=== PATIENT | male | born 1950 | race Caucasian/White ===

== ENCOUNTER 2023-07-19 00:24 | Emergency (ER) | payer SELFPAY ==
[2023-07-19 00:31] VITALS: BP 184/90; PULSE 95; RESP 18; TEMP 36.8; O2SAT 99; BMI 28.1
[2023-07-19 00:41] VITALS: O2SAT 98
--- NOTE | 2023-07-19 00:41 | CRLHL7_ITS ---
For Patients: As a result of the Cures Act, medical imaging exams and procedure reports are released immediately into your electronic medical record. You may view this report before your referring provider. If you have questions, please contact your health care provider. INDICATION: Altered mental status. TECHNIQUE: CT head without contrast. COMPARISON: None. FINDINGS: CSF spaces: Within normal limits for age. Brain parenchyma and extra-axial spaces: The pathak-white differentiation is normal. No sign of mass, hemorrhage, or midline shift. No extra-axial fluid collection. Skull base and calvarium: The visualized paranasal sinuses and mastoid air cells demonstrate no acute or significant findings. The visualized orbits are grossly unremarkable. No skull fractures. IMPRESSION: No acute intracranial abnormality on this noncontrast CT scan. Please note that all CT scans at this facility use dose modulation, iterative reconstruction, and/or weight-based dosing when appropriate to reduce radiation dose to as low as reasonably achievable. Dictated by Jadon Ashford MD @ 07/19/2023 1:26:01 AM (Electronically Signed)
--- NOTE | 2023-07-19 01:12 | ED.GENADULT ---
HPI - General Adult General Chief complaint: Altered Mental Status <Kailash Loomis MD - Last Filed: 07/19/23 11:03> Stated complaint: altered mental status <Kailash Loomis MD - Last Filed: 07/19/23 11:03> Time Seen by Provider: 07/19/23 00:30 <Kailash Loomis MD - Last Filed: 07/19/23 11:03> History of Present Illness HPI narrative: CC: Altered Mental Status pt. with symptoms for last 2 days per son. pt. confused upon arrival by ems. blood sugar 160. pt. unable to answer most questions 72-year-old man presenting to the emergency department via EMS with just being goofy over the last week but particularly so over the last 2 days. Accompanied by son. Seems to have trouble with recall. Often not making sense. Son had hoped to wait it out until morning but today got more difficult. Seems to get a little emotional when saying that he was here to protect his son in [place] from bad actors of some sort. Indicates that [place] police stole his things. I discussed this with his son, apparently had suspected to have staged a break in at son's home in [place] when son was out of town for work. 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 Does acknowledge having a history of particularly bad sleep lately. Does will proceed to ramble tangentially and pleasantly about surgeries he has had on his left arm. He acknowledges that is not taking his medications regularly (incidentally no evidence of taking medications including lithium in blood work done in emergency department visit 3 days ago) He feels that was told to go to micro dosing on his lithium. Does otherwise only indicate that he takes hydroxyzine and propranolol. Son is concerned that behavior is little atypical for bipolar decompensations he has exhibited in the past. Wondering about potential infection or dementia. Son notes trying to give hydroxyzine and propranolol but it seemed to be stimulating. Further conversation/information gathering reveals recent visit on 07/16/2023 to the emergency department at [facility] in [facility] where he was evaluated by psychiatry at that time. Son, a safety professional was out of town in [place] and his father had been visiting in [place] for couple of weeks. Son noted that had not been responding appropriately to text messages. It sounds as though father had staged a break-in to his son's home. Police conducted a welfare check on son's request. Mr. Villatoro was found at a bar. He has been having suspicions and suspected delusions about the son being unsafe. Review of records indicate history of bipolar disorder depression anxiety PTSD and at that time of emergency department evaluation acknowledging increased anxiety and depression but without suicidal or homicidal intent or plan. Increasingly odd behavior noted examples of strange events with ?nefarious meaning? which may be as simple as a traffic pattern change or water on a staircase. He had per records confronted strangers in the restaurant/bar who were he thought making a senior architect/design manager is a feel uncomfortable and then apparently ate a cigarette. During psychiatric assessment in the emergency department he further acknowledged that might be seeing some things that are not there or at least very strange. Demonstrated continued paranoia during time in the emergency department. Ultimately was discharged to the care of son to return to [place] with recommendations for neurocognitive testing, follow-up with geriatrics and psychiatry. Preliminary diagnosis was adjustment disorder unspecified type. Medications assumed on discharge the though without clear dosing were clonazepam hydroxyzine lithium propranolol and simvastatin. Apparently has taken lisinopril but Mr. Villatoro does say he is not taking it anymore. There is a relationship with a primary care provider Dr. Kev Ha phone number [phone] he thinks with [facility] in [place] and also acknowledges a relationship with psychiatrist MONSE Kamara and a therapist Rosalie Clemons PhD <Kailash Loomis MD - Last Filed: 07/19/23 11:03> Related Data Home medications: Home Medications Medication Instructions Recorded Confirmed clonazepam 0.5 mg tablet 0.5 mg PO DAILY PRN 07/19/23 07/19/23 desipramine 10 mg tablet 10 - 20 mg PO DAILY 07/19/23 07/19/23 hydroxyzine HCl 25 mg tablet 25 - 50 mg PO DAILY PRN 07/19/23 07/19/23 propranolol 20 mg tablet 20 mg PO BID 07/19/23 07/19/23 simvastatin 40 mg tablet 40 mg PO DAILY 07/19/23 07/19/23 <Kailash Loomis MD - Last Filed: 07/19/23 11:03> Allergies/adverse reactions: Allergies Allergy/AdvReac Type Severity Reaction Status Date / Time No Known Drug Allergies Allergy Verified 07/19/23 02:28 <Kailash Loomis MD - Last Filed: 07/19/23 11:03> Review of Systems Status of ROS: Reports: unobtainable due to medical condition and unobtainable due to mental status <Kailash Loomis MD - Last Filed: 07/19/23 11:03> [facility] Medical History: Medical History Hypertension ?I10 - Essential (primary) hypertension (ICD-10) GERD (gastroesophageal reflux disease) ?K21.9 - Gastro-esophageal reflux disease without esophagitis (ICD-10) Prostatic hypertrophy ?N40.0 - Benign prostatic hyperplasia without lower urinary tract symptoms (ICD-10) Hyperlipoproteinemia ?E78.5 - Hyperlipidemia, unspecified (ICD-10) Bipolar disorder ?F31.9 - Bipolar disorder, unspecified (ICD-10) <Kailash Loomis MD - Last Filed: 07/19/23 11:03> Surgical History: Surgical History (Updated 07/19/23 @ 02:39 by Kojo Valiente RN) No significant past surgical history <Kailash Loomis MD - Last Filed: 07/19/23 11:03> Social History: Social History Smoking Status: Never smoker Second hand tobacco smoke exposure: No How often do you have a drink containing alcohol: never How often do you have six or more drinks on one occasion: Never AUDIT-C Alcohol total score: 0 Non-prescribed substance use: denies use <Kailash Loomis MD - Last Filed: 07/19/23 11:03> Exam Narrative: Exam Narrative: Initially seems to be smirking not directly answering questions or frankly ignoring staff questioning. but when I go to assess begins to speak more extensively. Speech isn't pressured or slurred. He does though oddly go quiet intermittently. Answers to questions can be rather rambling and tangential. He may not make sense and answers questions often by just repeating the last word stated. And then may suddenly snap out of it. Says he feels fine. Mood is congruent. Cranial nerves 2-12 to be intact. He is breathing easily. No evidence self-harm on his person. Heart in elevated rate but regular rhythm. Abdomen is soft and nontender they seems little uncomfortable with exam joking about dad bod. He is moving all extremities without difficulty, fluidly and with good strength. Well-perfused peripherally and without edema. <Kailash Loomis MD - Last Filed: 07/19/23 11:03> Const: Vital Signs, click to edit/add: Vital Signs - 24 hr 07/19/23 20:32 07/20/23 02:43 07/20/23 08:00 Temperature 97.6 F Pulse Rate [Right Pulse Oximeter] 87 83 74 Respiratory Rate 18 18 16 Blood Pressure [Ri ght Upper Arm] 145/83 H 141/87 H 141/83 H Pulse Oximetry 97 98 98 Oxygen Delivery Me thod Room Air Room Air Room Air <Kailash Loomis MD - Last Filed: 07/19/23 11:03> Vital Signs, click to edit/add: Vital Signs - 24 hr 07/19/23 20:32 07/20/23 02:43 07/20/23 08:00 Temperature 97.6 F Pulse Rate [Right Pulse Oximeter] 87 83 74 Respiratory Rate 18 18 16 Blood Pressure [Ri ght Upper Arm] 145/83 H 141/87 H 141/83 H Pulse Oximetry 97 98 98 Oxygen Delivery Me thod Room Air Room Air Room Air <Chani Louis MD - Last Filed: 07/20/23 14:58> Vital Signs, click to edit/add: Vital Signs - 24 hr 07/19/23 20:32 07/20/23 02:43 07/20/23 08:00 Temperature 97.6 F Pulse Rate [Right Pulse Oximeter] 87 83 74 Respiratory Rate 18 18 16 Blood Pressure [Ri ght Upper Arm] 145/83 H 141/87 H 141/83 H Pulse Oximetry 97 98 98 Oxygen Delivery Me thod Room Air Room Air Room Air <Ezequiel Lawton MD - Last Filed: 09/03/23 08:24> Vital Signs, click to edit/add: Vital Signs - 24 hr 07/19/23 20:32 07/20/23 02:43 07/20/23 08:00 Temperature 97.6 F Pulse Rate [Right Pulse Oximeter] 87 83 74 Respiratory Rate 18 18 16 Blood Pressure [Ri t Upper Arm] 145/83 H 141/87 H 141/83 H Pulse Oximetry 97 98 98 Oxygen Delivery Me thod Room Air Room Air Room Air <Mary Ann Olmos MD - Last Filed: 07/20/23 08:11> Documenting provider has reviewed patient's vital signs: yes <Kailash Loomis MD - Last Filed: 07/19/23 11:03> Course Reevaluation(s) Time of Reevaluation #1: 09:53 <Chani Louis MD - Last Filed: 07/20/23 14:58> Reevaluation #1: Patient is having escalating behavior, continues to be in the hallway. States he is looking for nurse, does seem to get frustrated and swears. He is not combative with us. Will initiate some oral Zyprexa at this time. His son is still here and he obviously is more trusting of his son, his son is able to direct him back to the room. We are still looking for placement. <Chani Louis MD - Last Filed: 07/20/23 14:58> Time of Reevaluation #2: 12:18 <Chani Louis MD - Last Filed: 07/20/23 14:58> Reevaluation #2: Patient reportedly becoming a bit more agitated, will have him receive 1 mg oral Ativan. Still awaiting placement. <Chani Louis MD - Last Filed: 07/20/23 14:58> Time of Reevaluation #3: 12:55 <Chani Louis MD - Last Filed: 07/20/23 14:58> Reevaluation #3: Patient walked out of the ER into the back all way by Radiology. He was not redirectable initially, Dr. Jhaveri was called. We had ordered 5 mg IV Zyprexa which she will not allow is to give. After some talking and coaxing, we were able to get him back into the ER to walk in the ER. He eventually stood outside of his room. He wanted the police to come up, we did call them, they are not here, he wants to know how long it will be. I have informed him that I do not know. He states the please can explain this and explained this to his son. He does state that he was in the but cannot tell us what he did. His son states he was never in the . He agrees to take oral Ativan, I have subsequently ordered 2 mg oral Ativan and we will see if he actually will follow through with this. Right now he is standing outside of his room, where trying to get him back inside his room. Did speak with Jesus Breen and patient would need to be voluntary there; they would hope that he would be able to participate in group therapies. This does not sound like the environment for Mark. He has no insight into his current mental health/mental status issues. It is very possible that there could be some underlying dementia at play that is starting to become problematic. He is up standing and moving a lot, looks to be calm and does not have any pressured speech but certainly could be in a mild manic state. Is reported that sleep has not been happening, do not know to what extent this is problematic. <Chani Louis MD - Last Filed: 07/20/23 14:58> Additional Reevaluation(s): 3:[address] Anthony was called, patient escalated and walks out of the ER, did walk in the hospital with him, he eventually did find an exit in when outside, was walking around the parking lots outside. Police were called, we walked outside with him and just talk to him as we are waiting police to come. They were able to help direct him back inside. He is talking about how his son is stealing money from him despite being in a well the person himself. We did ultimately sign the hold paperwork as patient was asking about this, formally did fill out the paperwork and presented it to him. Tried to talk to him about having an MRI of his bring in workup of other possible contributing etiologies like perhaps dementia. He did not agree to this, this is not something that he will hold still for. We tried to explain to him that was different than the head CT. His son notes that when he was in the hospital in [place] a few days ago, they did do blood work and they found no traces of the medicines that he was supposed to be on. States the doctor also told them that somebody with bipolar disorder probably should not be on that medicine. In his med rec it looks like desipramine is listed and is an antidepressant. I see no mood stabilizers. Patient was given a be 52 IM to help in deescalating his behaviors and calming him. 5:20 p.m. reviewed prior notes from this visit, patient has history of bipolar disorder apparently not taking medications into compensating with paranoia, delusions, and possible hallucinations. Uncooperative with cares and has required redirection and multiple rounds of medications. Patient is on a hold. Wednesday07/20/2023 9:00 p.m.: Patient is seen again today. He is much more stable, knows it is 2022, knows he is in [facility], knows it is June. He still seems a bit suspicious, does not want to answer who his doctor is. He does tell me that I can get records without him signing. Did ask when he went off lithium, he states he has been on and off lithium over the years. He does get a little agitated about my questioning of his medication and who he sees for medical care, seems like he does not want me to know. I do have pictures of his medication bottles, can see that he is had some prescribed from Coleen Kamara and his cholesterol medicine is from Ray Ha whom is his primary provider in [place]. I did subsequently speak with Dr. Ha at 11:23 a.m., he sees this patient about twice a year and has been function well. We last saw him in April, he admitted that he was taking his lithium on and off but was on the desipramine. Coleen Harper ACCOUNTING TEACHER reportedly is the 1 who prescribes his psychiatric medicines. He has followed his lithium levels they have all been in low normal range. He is on lithium extended release [address] Ha believes that he should be on the lithium and desipramine. I subsequently spoke with our pharmacist, we do not have extended release lithium. We are going to initiate 300 mg now, she will check to see if we have desipramine. Will see if we can talk to Coleen as well. It is unclear to me that this is likely an acute psychosis from decompensated bipolar disorder. Patient is a bit clearer and more directable today than he was yesterday. I am doubtful that there is any underlying delirium, any significant dementia that is playing into this upon re-evaluation and seeing the events that have progressed over the last couple weeks. I have had the ability to see him yesterday into today now, is mentally better after some of the stabilizing affects of the antipsychotics. Still think he would benefit from inpatient Psychiatry. Wednesday07/20/2023 2:57 p.m.: Patient has been accepted to [facility]. This is reportedly a geriatric psychiatric care facility. <Chani Louis MD - Last Filed: 07/20/23 14:58> 3:[address] Anthony was called, patient escalated and walks out of the ER, did walk in the hospital with him, he eventually did find an exit in when outside, was walking around the parking lots outside. Police were called, we walked outside with him and just talk to him as we are waiting police to come. They were able to help direct him back inside. He is talking about how his son is stealing money from him despite being in a well the person himself. We did ultimately sign the hold paperwork as patient was asking about this, formally did fill out the paperwork and presented it to him. Tried to talk to him about having an MRI of his bring in workup of other possible contributing etiologies like perhaps dementia. He did not agree to this, this is not something that he will hold still for. We tried to explain to him that was different than the head CT. His son notes that when he was in the hospital in [place] a few days ago, they did do blood work and they found no traces of the medicines that he was supposed to be on. States the doctor also told them that somebody with bipolar disorder probably should not be on that medicine. In his med rec it looks like desipramine is listed and is an antidepressant. I see no mood stabilizers. Patient was given a be 52 IM to help in deescalating his behaviors and calming him. 5:20 p.m. reviewed prior notes from this visit, patient has history of bipolar disorder apparently not taking medications into compensating with paranoia, delusions, and possible hallucinations. Uncooperative with cares and has required redirection and multiple rounds of medications. Patient is on a hold. <Ezequiel Lawton MD - Last Filed: 09/03/23 08:24> Vital Signs Vital signs: Initial Vital Signs Temperature 98.2 F 07/19/23 00:31 Temperature Source Temporal Artery Scan 07/19/23 00:31 Pulse Rate 95 07/19/23 00:31 Respiratory Rate 18 07/19/23 00:31 Blood Pressure 184/90 H 07/19/23 00:31 Blood Pressure Mean 121 H 07/19/23 00:31 Blood Pressure Position Sitting 07/19/23 00:31 Pulse Oximetry 99 07/19/23 00:31 Oxygen Delivery Method Room Air 07/19/23 00:31 Vital Signs Temperature 98.2 F 07/19/23 00:31 Pulse Rate 95 07/19/23 00:31 Respiratory Rate 18 07/19/23 00:31 Blood Pressure 184/90 H 07/19/23 00:31 Pulse Oximetry 99 07/19/23 00:31 Oxygen Delivery Method Room Air 07/19/23 00:31 Temperature 97.8 F 07/20/23 17:50 Pulse Rate 81 07/20/23 17:50 Respiratory Rate 14 07/20/23 17:50 Blood Pressure 173/90 H 07/20/23 17:50 Pulse Oximetry 98 07/20/23 17:50 Oxygen Delivery Method Room Air 07/20/23 17:50 <Kailash Loomis MD - Last Filed: 07/19/23 11:03> Initial Vital Signs Temperature 98.2 F 07/19/23 00:31 Temperature Source Temporal Artery Scan 07/19/23 00:31 Pulse Rate 95 07/19/23 00:31 Respiratory Rate 18 07/19/23 00:31 Blood Pressure 184/90 H 07/19/23 00:31 Blood Pressure Mean 121 H 07/19/23 00:31 Blood Pressure Position Sitting 07/19/23 00:31 Pulse Oximetry 99 07/19/23 00:31 Oxygen Delivery Method Room Air 07/19/23 00:31 Vital Signs Temperature 98.2 F 07/19/23 00:31 Pulse Rate 95 07/19/23 00:31 Respiratory Rate 18 07/19/23 00:31 Blood Pressure 184/90 H 07/19/23 00:31 Pulse Oximetry 99 07/19/23 00:31 Oxygen Delivery Method Room Air 07/19/23 00:31 Temperature 97.8 F 07/20/23 17:50 Pulse Rate 81 07/20/23 17:50 Respiratory Rate 14 07/20/23 17:50 Blood Pressure 173/90 H 07/20/23 17:50 Pulse Oximetry 98 07/20/23 17:50 Oxygen Delivery Method Room Air 07/20/23 17:50 <Chani Louis MD - Last Filed: 07/20/23 14:58> Initial Vital Signs Temperature 98.2 F 07/19/23 00:31 Temperature Source Temporal Artery Scan 07/19/23 00:31 Pulse Rate 95 07/19/23 00:31 Respiratory Rate 18 07/19/23 00:31 Blood Pressure 184/90 H 07/19/23 00:31 Blood Pressure Mean 121 H 07/19/23 00:31 Blood Pressure Position Sitting 07/19/23 00:31 Pulse Oximetry 99 07/19/23 00:31 Oxygen Delivery Method Room Air 07/19/23 00:31 Vital Signs Temperature 98.2 F 07/19/23 00:31 Pulse Rate 95 07/19/23 00:31 Respiratory Rate 18 07/19/23 00:31 Blood Pressure 184/90 H 07/19/23 00:31 Pulse Oximetry 99 07/19/23 00:31 Oxygen Delivery Method Room Air 07/19/23 00:31 Temperature 97.8 F 07/20/23 17:50 Pulse Rate 81 07/20/23 17:50 Respiratory Rate 14 07/20/23 17:50 Blood Pressure 173/90 H 07/20/23 17:50 Pulse Oximetry 98 07/20/23 17:50 Oxygen Delivery Method Room Air 07/20/23 17:50 <Ezequiel Lawton MD - Last Filed: 09/03/23 08:24> Initial Vital Signs Temperature 98.2 F 07/19/23 00:31 Temperature Source Temporal Artery Scan 07/19/23 00:31 Pulse Rate 95 07/19/23 00:31 Respiratory Rate 18 07/19/23 00:31 Blood Pressure 184/90 H 07/19/23 00:31 Blood Pressure Mean 121 H 07/19/23 00:31 Blood Pressure Position Sitting 07/19/23 00:31 Pulse Oximetry 99 07/19/23 00:31 Oxygen Delivery Method Room Air 07/19/23 00:31 Vital Signs Temperature 98.2 F 07/19/23 00:31 Pulse Rate 95 07/19/23 00:31 Respiratory Rate 18 07/19/23 00:31 Blood Pressure 184/90 H 07/19/23 00:31 Pulse Oximetry 99 07/19/23 00:31 Oxygen Delivery Method Room Air 07/19/23 00:31 Temperature 97.8 F 07/20/23 17:50 Pulse Rate 81 07/20/23 17:50 Respiratory Rate 14 07/20/23 17:50 Blood Pressure 173/90 H 07/20/23 17:50 Pulse Oximetry 98 07/20/23 17:50 Oxygen Delivery Method Room Air 07/20/23 17:50 <Mary Ann Olmos MD - Last Filed: 07/20/23 08:11> Medical Decision Making MDM Narrative Medical decision making narrative: Initially there was some concern of potential stroke on arrival. This clearly though has been going on for longer period of time. Differential includes hyperglycemia, thyroid dysfunction, indolent infectious process, med reaction, electrolyte imbalance. Josie or other mental health instability. I favor the latter; decompensating mental health complicated by geriatrics. Initial conversation as follows; return to gather more information as noted in HPI -- Does admit to taking regular medication for a time. Had been taking lithium but I believe did like the way it made him feel and had been tapered off the way he describes that. Has not been taking medications regularly anyway. He endorses propranolol and hydroxyzine. Limited information but then also from son that he did get his dad to take medication I believe yesterday. Unsure what regular medications are supposed to be or where gets primary care. Currently son is the only family around. Is not exactly clear when I ask about hallucinations. Deflects and asks for water. Without initial information of extensive mental health, and as described by son with atypical features for bipolar exacerbation in the past, did request head CT and extensive lab evaluation. Head CT was unremarkable by my read. Labs are overall reassuring with mildly elevated transaminases. Son left room/area for a time in the emergency department. Mr. Villatoro became more agitated. Did want to depart home. Is more easily redirectable with son present. Does finally agree to take lorazepam and try to rest after continuing to flip on the lights. I have requested a DEC mental health assessment as I think that hospitalization will be best to facilitate a turnaround in mental health here. I do not think that outpatient follow-up will be successful. At home generally reported to not do what son is trying to encourage him to do like take daily medication. I do think that needs a formal assessment related to geriatric status and mental health. Pending [facility] assessment, did place a call to psychiatric facility in [facility] in [place], [place]. They do have tentative bed availability and would need to review case the morning. It sounds like Mr. Villatoro would be a good candidate for their skill and patient population. [facility] also called back to assess. After interview with son and patient they were also supportive of inpatient psychiatric hospitalization. Mr. Villatoro is not on a hold at this time. He is demonstrating confusion but is redirectable. He does often demonstrate understanding that he needs help to level again. Son is very helpful in assisting with coaxing him to cares. Did become more agitated once again was given a dose of Zyprexa. Would consider again lorazepam. Will be handing off at change of shift pending hospitalization <Kailash Loomis MD - Last Filed: 07/19/23 11:03> Initially there was some concern of potential stroke on arrival. This clearly though has been going on for longer period of time. Differential includes hyperglycemia, thyroid dysfunction, indolent infectious process, med reaction, electrolyte imbalance. Josie or other mental health instability. I favor the latter; decompensating mental health complicated by geriatrics. Initial conversation as follows; return to gather more information as noted in HPI -- Does admit to taking regular medication for a time. Had been taking lithium but I believe did like the way it made him feel and had been tapered off the way he describes that. Has not been taking medications regularly anyway. He endorses propranolol and hydroxyzine. Limited information but then also from son that he did get his dad to take medication I believe yesterday. Unsure what regular medications are supposed to be or where gets primary care. Currently son is the only family around. Is not exactly clear when I ask about hallucinations. Deflects and asks for water. Without initial information of extensive mental health, and as described by son with atypical features for bipolar exacerbation in the past, did request head CT and extensive lab evaluation. Head CT was unremarkable by my read. Labs are overall reassuring with mildly elevated transaminases. Son left room/area for a time in the emergency department. Mr. Villatoro became more agitated. Did want to depart home. Is more easily redirectable with son present. Does finally agree to take lorazepam and try to rest after continuing to flip on the lights. I have requested a [facility] mental health assessment as I think that hospitalization will be best to facilitate a turnaround in mental health here. I do not think that outpatient follow-up will be successful. At home generally reported to not do what son is trying to encourage him to do like take daily medication. I do think that needs a formal assessment related to geriatric status and mental health. Pending [facility] assessment, did place a call to psychiatric facility in [facility] in [place], [place]. They do have tentative bed availability and would need to review case the morning. It sounds like Mr. Villatoro would be a good candidate for their skill and patient population. [facility] also called back to assess. After interview with son and patient they were also supportive of inpatient psychiatric hospitalization. Mr. Villatoro is not on a hold at this time. He is demonstrating confusion but is redirectable. He does often demonstrate understanding that he needs help to level again. Son is very helpful in assisting with coaxing him to cares. Did become more agitated once again was given a dose of Zyprexa. Would consider again lorazepam. Will be handing off at change of shift pending hospitalization Dr. Irvin: This patient has been resting comfortably in the ED until recently. He was given IM Zyprexa yesterday and oral Zyprexa last evening at approximately 2000 hours or almost 7 hours ago. At this time he is starting to become more active again. Nursing staff is concern. He is given a Ativan 2 mg p.o.. Will continue to monitor. 0437 Dr. Irvin: Patient noted to have continued increasing agitation and some verbal escalation. Zyprexa 10 mg p.o. is ordered. Patient took the 1st pill but through the 2nd pill across the room so he only received 5 mg. He was able to urinate which is what his main complaint was and since that time has been increasingly calm. Continuing to monitor. 0210 Dr. Irvin: Mark is signed out to my partner Dr. Brown. Continued process of looking for placement. Dr. Brown his ordered pharmacy consult as well as additional Zyprexa. <Mary Ann Olmos MD - Last Filed: 07/20/23 08:11> Lab Data Lab results reviewed: Yes I reviewed the patient's lab results <Kailash Loomis MD - Last Filed: 07/19/23 11:03> Labs: Lab Results 07/19/23 07/19/23 07/19/23 Range/Units 00:15 01:15 02:15 WBC 8.54 (4.50-11.00) K/uL RBC 4.49 (4.30-5.90) m/uL Hgb 14.0 (13.5-17.5) gm/dL Hct 41.1 (37.0-53.0) % MCV 92 (80-100) fL MCH 31 (26-34) pg MCHC 34 (32-36) gm/dL RDW Coeff of Andrei 12.4 (11.5-15.5) % Plt Count 233 (140-440) K/uL Neut % (Auto) 75.1 H (42.0-72.0) % Lymph % (Auto) 15.2 L (20-44) % [place] % (Auto) 8.2 (0.0-11.0) % Eos % (Auto) 1.1 (0.0-7.0) % Baso % (Auto) 0.2 (0.0-3.0) % Neut # (Auto) 6.40 (1.7-7.0) K/uL Lymph # (Auto) 1.30 (0.90-2.90) K/uL [place] # (Auto) 0.70 (0.00-0.90) K/UL Eos # (Auto) 0.09 (0.00-0.50) K/uL Baso # (Auto) 0.02 (0.00-0.30) K/uL Abs Immat Gran (auto) 0.02 (0.00-0.30) K/uL Imm/Tot Granulo (auto) 0.2 % Sodium 139 (135-149) mmol/L Potassium 3.6 (3.6-5.1) mmol/L Chloride 107 (96-114) mmol/L Carbon Dioxide 24 (20-32) mmol/L Anion Gap 8 (7-15) mEq/L BUN 18 (7-30) mg/dL Creatinine 0.9 (0.5-1.5) mg/dL Estimated Creat Clear 78.63 Estimated GFR 90 ml/min Glucose 161 H (60-115) mg/dL Calcium 9.0 (8.4-10.6) mg/dL Magnesium 2.1 (1.5-2.6) mg/dL Total Bilirubin 0.6 (0.1-1.5) mg/dL Direct Bilirubin 0.0 (0.0-0.5) mg/dL AST 97 H (12-35) U/L ALT 58 H (4-50) U/L Alkaline Phosphatase 78 (40-150) U/L Troponin I < 0.01 L (0.01-0.04) ng/mL C-Reactive Protein < 0.5 L (0.5-1.0) mg/dL NT-Pro-B Natriuret Pep 118 pg/mL Total Protein 7.3 (6.0-8.3) g/dL Albumin 4.2 (3.3-5.0) g/dL TSH 2.350 (0.270-4.20) uIU/mL Urine Color (Yellow) Urine Appearance (Clear) Urine pH (5.0-8.5) Ur Specific [place] (1.000-1.030) Urine Protein (Negative) Urine Glucose (UA) (Negative) Urine Ketones (Negative) Urine Blood (Negative) Urine Nitrite (Negative) Urine Bilirubin (Negative) Urine Urobilinogen (0.2-1.0) Ur Leukocyte Esterase (Negative) Urine RBC (0-2) Urine WBC (0-5) Ur Squamous Epith Cells (None-Few) Urine Bacteria (None) Salicylates < 1.0 L (1.0-10) mg/dL Urine Opiates Screen Negative (Negative) Ur Oxycodone Screen Negative (Negative) Urine Methadone Screen Negative (Negative) Ur Propoxyphene Screen Negative (Negative) Acetaminophen < 10.0 L (10.0-30.0) ug/mL Ur Barbiturates Screen Negative (Negative) U Tricyclic Antidepress Negative (Negative) Ur Phencyclidine Scrn Negative (Negative) Ur Amphetamines Screen Negative (Negative) U Methamphetamines Scrn Negative (Negative) U Benzodiazepines Scrn Negative (Negative) Urine Cocaine Screen Negative (Negative) U Marijuana (THC) Screen Negative (Negative) Ur Drug Screen Comment See Note Ethyl Alcohol < 0.01 L (0.01-0.03) % SARS-CoV-2 (PCR) Negative SARS-CoV-2 (Negative) Lab Acknowledgement POC Troponin I 0.01 (0.01-0.04) ng/ml 07/19/23 07/19/23 Range/Units 02:30 04:10 WBC (4.50-11.00) K/uL RBC (4.30-5.90) m/uL Hgb (13.5-17.5) gm/dL Hct (37.0-53.0) % MCV (80-100) fL MCH (26-34) pg MCHC (32-36) gm/dL RDW Coeff of Andrei (11.5-15.5) % Plt Count (140-440) K/uL Neut % (Auto) (42.0-72.0) % Lymph % (Auto) (20-44) % [place] % (Auto) (0.0-11.0) % Eos % (Auto) (0.0-7.0) % Baso % (Auto) (0.0-3.0) % Neut # (Auto) (1.7-7.0) K/uL Lymph # (Auto) (0.90-2.90) K/uL [place] # (Auto) (0.00-0.90) K/UL Eos # (Auto) (0.00-0.50) K/uL Baso # (Auto) (0.00-0.30) K/uL Abs Immat Gran (auto) (0.00-0.30) K/uL Imm/Tot Granulo (auto) % Sodium (135-149) mmol/L Potassium (3.6-5.1) mmol/L Chloride (96-114) mmol/L Carbon Dioxide (20-32) mmol/L Anion Gap (7-15) mEq/L BUN (7-30) mg/dL Creatinine (0.5-1.5) mg/dL Estimated Creat Clear Estimated GFR ml/min Glucose (60-115) mg/dL Calcium (8.4-10.6) mg/dL Magnesium (1.5-2.6) mg/dL Total Bilirubin (0.1-1.5) mg/dL Direct Bilirubin (0.0-0.5) mg/dL AST (12-35) U/L ALT (4-50) U/L Alkaline Phosphatase (40-150) U/L Troponin I (0.01-0.04) ng/mL C-Reactive Protein (0.5-1.0) mg/dL NT-Pro-B Natriuret Pep pg/mL Total Protein (6.0-8.3) g/dL Albumin (3.3-5.0) g/dL TSH (0.270-4.20) uIU/mL Urine Color Yellow (Yellow) Urine Appearance Clear (Clear) Urine pH 6.0 (5.0-8.5) Ur Specific [place] 1.010 (1.000-1.030) Urine Protein Negative (Negative) Urine Glucose (UA) Negative (Negative) Urine Ketones Negative (Negative) Urine Blood Negative (Negative) Urine Nitrite Negative (Negative) Urine Bilirubin Negative (Negative) Urine Urobilinogen 0.2 (0.2-1.0) Ur Leukocyte Esterase Negative (Negative) Urine RBC 0-2 (0-2) Urine WBC 0-2 (0-5) Ur Squamous Epith Cells Few (None-Few) Urine Bacteria None (None) Salicylates (1.0-10) mg/dL Urine Opiates Screen (Negative) Ur Oxycodone Screen (Negative) Urine Methadone Screen (Negative) Ur Propoxyphene Screen (Negative) Acetaminophen (10.0-30.0) ug/mL Ur Barbiturates Screen (Negative) U Tricyclic Antidepress (Negative) Ur Phencyclidine Scrn (Negative) Ur Amphetamines Screen (Negative) U Methamphetamines Scrn (Negative) U Benzodiazepines Scrn (Negative) Urine Cocaine Screen (Negative) U Marijuana (THC) Screen (Negative) Ur Drug Screen Comment Ethyl Alcohol (0.01-0.03) % SARS-CoV-2 (PCR) (Negative) Lab Acknowledgement Test Added POC Troponin I (0.01-0.04) ng/ml <Kailash Loomis MD - Last Filed: 07/19/23 11:03> Lab Results 07/19/23 07/19/23 07/19/23 Range/Units 00:15 01:15 02:15 WBC 8.54 (4.50-11.00) K/uL RBC 4.49 (4.30-5.90) m/uL Hgb 14.0 (13.5-17.5) gm/dL Hct 41.1 (37.0-53.0) % MCV 92 (80-100) fL MCH 31 (26-34) pg MCHC 34 (32-36) gm/dL RDW Coeff of Andrei 12.4 (11.5-15.5) % Plt Count 233 (140-440) K/uL Neut % (Auto) 75.1 H (42.0-72.0) % Lymph % (Auto) 15.2 L (20-44) % [place] % (Auto) 8.2 (0.0-11.0) % Eos % (Auto) 1.1 (0.0-7.0) % Baso % (Auto) 0.2 (0.0-3.0) % Neut # (Auto) 6.40 (1.7-7.0) K/uL Lymph # (Auto) 1.30 (0.90-2.90) K/uL [place] # (Auto) 0.70 (0.00-0.90) K/UL Eos # (Auto) 0.09 (0.00-0.50) K/uL Baso # (Auto) 0.02 (0.00-0.30) K/uL Abs Immat Gran (auto) 0.02 (0.00-0.30) K/uL Imm/Tot Granulo (auto) 0.2 % Sodium 139 (135-149) mmol/L Potassium 3.6 (3.6-5.1) mmol/L Chloride 107 (96-114) mmol/L Carbon Dioxide 24 (20-32) mmol/L Anion Gap 8 (7-15) mEq/L BUN 18 (7-30) mg/dL Creatinine 0.9 (0.5-1.5) mg/dL Estimated Creat Clear 78.63 Estimated GFR 90 ml/min Glucose 161 H (60-115) mg/dL Calcium 9.0 (8.4-10.6) mg/dL Magnesium 2.1 (1.5-2.6) mg/dL Total Bilirubin 0.6 (0.1-1.5) mg/dL Direct Bilirubin 0.0 (0.0-0.5) mg/dL AST 97 H (12-35) U/L ALT 58 H (4-50) U/L Alkaline Phosphatase 78 (40-150) U/L Troponin I < 0.01 L (0.01-0.04) ng/mL C-Reactive Protein < 0.5 L (0.5-1.0) mg/dL NT-Pro-B Natriuret Pep 118 pg/mL Total Protein 7.3 (6.0-8.3) g/dL Albumin 4.2 (3.3-5.0) g/dL TSH 2.350 (0.270-4.20) uIU/mL Urine Color (Yellow) Urine Appearance (Clear) Urine pH (5.0-8.5) Ur Specific [place] (1.000-1.030) Urine Protein (Negative) Urine Glucose (UA) (Negative) Urine Ketones (Negative) Urine Blood (Negative) Urine Nitrite (Negative) Urine Bilirubin (Negative) Urine Urobilinogen (0.2-1.0) Ur Leukocyte Esterase (Negative) Urine RBC (0-2) Urine WBC (0-5) Ur Squamous Epith Cells (None-Few) Urine Bacteria (None) Salicylates < 1.0 L (1.0-10) mg/dL Urine Opiates Screen Negative (Negative) Ur Oxycodone Screen Negative (Negative) Urine Methadone Screen Negative (Negative) Ur Propoxyphene Screen Negative (Negative) Acetaminophen < 10.0 L (10.0-30.0) ug/mL Ur Barbiturates Screen Negative (Negative) U Tricyclic Antidepress Negative (Negative) Ur Phencyclidine Scrn Negative (Negative) Ur Amphetamines Screen Negative (Negative) U Methamphetamines Scrn Negative (Negative) U Benzodiazepines Scrn Negative (Negative) Urine Cocaine Screen Negative (Negative) U Marijuana (THC) Screen Negative (Negative) Ur Drug Screen Comment See Note Ethyl Alcohol < 0.01 L (0.01-0.03) % SARS-CoV-2 (PCR) Negative SARS-CoV-2 (Negative) Lab Acknowledgement POC Troponin I 0.01 (0.01-0.04) ng/ml 07/19/23 07/19/23 Range/Units 02:30 04:10 WBC (4.50-11.00) K/uL RBC (4.30-5.90) m/uL Hgb (13.5-17.5) gm/dL Hct (37.0-53.0) % MCV (80-100) fL MCH (26-34) pg MCHC (32-36) gm/dL RDW Coeff of Andrei (11.5-15.5) % Plt Count (140-440) K/uL Neut % (Auto) (42.0-72.0) % Lymph % (Auto) (20-44) % [place] % (Auto) (0.0-11.0) % Eos % (Auto) (0.0-7.0) % Baso % (Auto) (0.0-3.0) % Neut # (Auto) (1.7-7.0) K/uL Lymph # (Auto) (0.90-2.90) K/uL [place] # (Auto) (0.00-0.90) K/UL Eos # (Auto) (0.00-0.50) K/uL Baso # (Auto) (0.00-0.30) K/uL Abs Immat Gran (auto) (0.00-0.30) K/uL Imm/Tot Granulo (auto) % Sodium (135-149) mmol/L Potassium (3.6-5.1) mmol/L Chloride (96-114) mmol/L Carbon Dioxide (20-32) mmol/L Anion Gap (7-15) mEq/L BUN (7-30) mg/dL Creatinine (0.5-1.5) mg/dL Estimated Creat Clear Estimated GFR ml/min Glucose (60-115) mg/dL Calcium (8.4-10.6) mg/dL Magnesium (1.5-2.6) mg/dL Total Bilirubin (0.1-1.5) mg/dL Direct Bilirubin (0.0-0.5) mg/dL AST (12-35) U/L ALT (4-50) U/L Alkaline Phosphatase (40-150) U/L Troponin I (0.01-0.04) ng/mL C-Reactive Protein (0.5-1.0) mg/dL NT-Pro-B Natriuret Pep pg/mL Total Protein (6.0-8.3) g/dL Albumin (3.3-5.0) g/dL TSH (0.270-4.20) uIU/mL Urine Color Yellow (Yellow) Urine Appearance Clear (Clear) Urine pH 6.0 (5.0-8.5) Ur Specific [place] 1.010 (1.000-1.030) Urine Protein Negative (Negative) Urine Glucose (UA) Negative (Negative) Urine Ketones Negative (Negative) Urine Blood Negative (Negative) Urine Nitrite Negative (Negative) Urine Bilirubin Negative (Negative) Urine Urobilinogen 0.2 (0.2-1.0) Ur Leukocyte Esterase Negative (Negative) Urine RBC 0-2 (0-2) Urine WBC 0-2 (0-5) Ur Squamous Epith Cells Few (None-Few) Urine Bacteria None (None) Salicylates (1.0-10) mg/dL Urine Opiates Screen (Negative) Ur Oxycodone Screen (Negative) Urine Methadone Screen (Negative) Ur Propoxyphene Screen (Negative) Acetaminophen (10.0-30.0) ug/mL Ur Barbiturates Screen (Negative) U Tricyclic Antidepress (Negative) Ur Phencyclidine Scrn (Negative) Ur Amphetamines Screen (Negative) U Methamphetamines Scrn (Negative) U Benzodiazepines Scrn (Negative) Urine Cocaine Screen (Negative) U Marijuana (THC) Screen (Negative) Ur Drug Screen Comment Ethyl Alcohol (0.01-0.03) % SARS-CoV-2 (PCR) (Negative) Lab Acknowledgement Test Added POC Troponin I (0.01-0.04) ng/ml <Chani Louis MD - Last Filed: 07/20/23 14:58> Lab Results 07/19/23 07/19/23 07/19/23 Range/Units 00:15 01:15 02:15 WBC 8.54 (4.50-11.00) K/uL RBC 4.49 (4.30-5.90) m/uL Hgb 14.0 (13.5-17.5) gm/dL Hct 41.1 (37.0-53.0) % MCV 92 (80-100) fL MCH 31 (26-34) pg MCHC 34 (32-36) gm/dL RDW Coeff of Andrei 12.4 (11.5-15.5) % Plt Count 233 (140-440) K/uL Neut % (Auto) 75.1 H (42.0-72.0) % Lymph % (Auto) 15.2 L (20-44) % [place] % (Auto) 8.2 (0.0-11.0) % Eos % (Auto) 1.1 (0.0-7.0) % Baso % (Auto) 0.2 (0.0-3.0) % Neut # (Auto) 6.40 (1.7-7.0) K/uL Lymph # (Auto) 1.30 (0.90-2.90) K/uL [place] # (Auto) 0.70 (0.00-0.90) K/UL Eos # (Auto) 0.09 (0.00-0.50) K/uL Baso # (Auto) 0.02 (0.00-0.30) K/uL Abs Immat Gran (auto) 0.02 (0.00-0.30) K/uL Imm/Tot Granulo (auto) 0.2 % Sodium 139 (135-149) mmol/L Potassium 3.6 (3.6-5.1) mmol/L Chloride 107 (96-114) mmol/L Carbon Dioxide 24 (20-32) mmol/L Anion Gap 8 (7-15) mEq/L BUN 18 (7-30) mg/dL Creatinine 0.9 (0.5-1.5) mg/dL Estimated Creat Clear 78.63 Estimated GFR 90 ml/min Glucose 161 H (60-115) mg/dL Calcium 9.0 (8.4-10.6) mg/dL Magnesium 2.1 (1.5-2.6) mg/dL Total Bilirubin 0.6 (0.1-1.5) mg/dL Direct Bilirubin 0.0 (0.0-0.5) mg/dL AST 97 H (12-35) U/L ALT 58 H (4-50) U/L Alkaline Phosphatase 78 (40-150) U/L Troponin I < 0.01 L (0.01-0.04) ng/mL C-Reactive Protein < 0.5 L (0.5-1.0) mg/dL NT-Pro-B Natriuret Pep 118 pg/mL Total Protein 7.3 (6.0-8.3) g/dL Albumin 4.2 (3.3-5.0) g/dL TSH 2.350 (0.270-4.20) uIU/mL Urine Color (Yellow) Urine Appearance (Clear) Urine pH (5.0-8.5) Ur Specific [place] (1.000-1.030) Urine Protein (Negative) Urine Glucose (UA) (Negative) Urine Ketones (Negative) Urine Blood (Negative) Urine Nitrite (Negative) Urine Bilirubin (Negative) Urine Urobilinogen (0.2-1.0) Ur Leukocyte Esterase (Negative) Urine RBC (0-2) Urine WBC (0-5) Ur Squamous Epith Cells (None-Few) Urine Bacteria (None) Salicylates < 1.0 L (1.0-10) mg/dL Urine Opiates Screen Negative (Negative) Ur Oxycodone Screen Negative (Negative) Urine Methadone Screen Negative (Negative) Ur Propoxyphene Screen Negative (Negative) Acetaminophen < 10.0 L (10.0-30.0) ug/mL Ur Barbiturates Screen Negative (Negative) U Tricyclic Antidepress Negative (Negative) Ur Phencyclidine Scrn Negative (Negative) Ur Amphetamines Screen Negative (Negative) U Methamphetamines Scrn Negative (Negative) U Benzodiazepines Scrn Negative (Negative) Urine Cocaine Screen Negative (Negative) U Marijuana (THC) Screen Negative (Negative) Ur Drug Screen Comment See Note Ethyl Alcohol < 0.01 L (0.01-0.03) % SARS-CoV-2 (PCR) Negative SARS-CoV-2 (Negative) Lab Acknowledgement POC Troponin I 0.01 (0.01-0.04) ng/ml 07/19/23 07/19/23 Range/Units 02:30 04:10 WBC (4.50-11.00) K/uL RBC (4.30-5.90) m/uL Hgb (13.5-17.5) gm/dL Hct (37.0-53.0) % MCV (80-100) fL MCH (26-34) pg MCHC (32-36) gm/dL RDW Coeff of Andrei (11.5-15.5) % Plt Count (140-440) K/uL Neut % (Auto) (42.0-72.0) % Lymph % (Auto) (20-44) % [place] % (Auto) (0.0-11.0) % Eos % (Auto) (0.0-7.0) % Baso % (Auto) (0.0-3.0) % Neut # (Auto) (1.7-7.0) K/uL Lymph # (Auto) (0.90-2.90) K/uL [place] # (Auto) (0.00-0.90) K/UL Eos # (Auto) (0.00-0.50) K/uL Baso # (Auto) (0.00-0.30) K/uL Abs Immat Gran (auto) (0.00-0.30) K/uL Imm/Tot Granulo (auto) % Sodium (135-149) mmol/L Potassium (3.6-5.1) mmol/L Chloride (96-114) mmol/L Carbon Dioxide (20-32) mmol/L Anion Gap (7-15) mEq/L BUN (7-30) mg/dL Creatinine (0.5-1.5) mg/dL Estimated Creat Clear Estimated GFR ml/min Glucose (60-115) mg/dL Calcium (8.4-10.6) mg/dL Magnesium (1.5-2.6) mg/dL Total Bilirubin (0.1-1.5) mg/dL Direct Bilirubin (0.0-0.5) mg/dL AST (12-35) U/L ALT (4-50) U/L Alkaline Phosphatase (40-150) U/L Troponin I (0.01-0.04) ng/mL C-Reactive Protein (0.5-1.0) mg/dL NT-Pro-B Natriuret Pep pg/mL Total Protein (6.0-8.3) g/dL Albumin (3.3-5.0) g/dL TSH (0.270-4.20) uIU/mL Urine Color Yellow (Yellow) Urine Appearance Clear (Clear) Urine pH 6.0 (5.0-8.5) Ur Specific [place] 1.010 (1.000-1.030) Urine Protein Negative (Negative) Urine Glucose (UA) Negative (Negative) Urine Ketones Negative (Negative) Urine Blood Negative (Negative) Urine Nitrite Negative (Negative) Urine Bilirubin Negative (Negative) Urine Urobilinogen 0.2 (0.2-1.0) Ur Leukocyte Esterase Negative (Negative) Urine RBC 0-2 (0-2) Urine WBC 0-2 (0-5) Ur Squamous Epith Cells Few (None-Few) Urine Bacteria None (None) Salicylates (1.0-10) mg/dL Urine Opiates Screen (Negative) Ur Oxycodone Screen (Negative) Urine Methadone Screen (Negative) Ur Propoxyphene Screen (Negative) Acetaminophen (10.0-30.0) ug/mL Ur Barbiturates Screen (Negative) U Tricyclic Antidepress (Negative) Ur Phencyclidine Scrn (Negative) Ur Amphetamines Screen (Negative) U Methamphetamines Scrn (Negative) U Benzodiazepines Scrn (Negative) Urine Cocaine Screen (Negative) U Marijuana (THC) Screen (Negative) Ur Drug Screen Comment Ethyl Alcohol (0.01-0.03) % SARS-CoV-2 (PCR) (Negative) Lab Acknowledgement Test Added POC Troponin I (0.01-0.04) ng/ml <Ezequiel Lawton MD - Last Filed: 09/03/23 08:24> Lab Results 07/19/23 07/19/23 07/19/23 Range/Units 00:15 01:15 02:15 WBC 8.54 (4.50-11.00) K/uL RBC 4.49 (4.30-5.90) m/uL Hgb 14.0 (13.5-17.5) gm/dL Hct 41.1 (37.0-53.0) % MCV 92 (80-100) fL MCH 31 (26-34) pg MCHC 34 (32-36) gm/dL RDW Coeff of Andrei 12.4 (11.5-15.5) % Plt Count 233 (140-440) K/uL Neut % (Auto) 75.1 H (42.0-72.0) % Lymph % (Auto) 15.2 L (20-44) % [place] % (Auto) 8.2 (0.0-11.0) % Eos % (Auto) 1.1 (0.0-7.0) % Baso % (Auto) 0.2 (0.0-3.0) % Neut # (Auto) 6.40 (1.7-7.0) K/uL Lymph # (Auto) 1.30 (0.90-2.90) K/uL [place] # (Auto) 0.70 (0.00-0.90) K/UL Eos # (Auto) 0.09 (0.00-0.50) K/uL Baso # (Auto) 0.02 (0.00-0.30) K/uL Abs Immat Gran (auto) 0.02 (0.00-0.30) K/uL Imm/Tot Granulo (auto) 0.2 % Sodium 139 (135-149) mmol/L Potassium 3.6 (3.6-5.1) mmol/L Chloride 107 (96-114) mmol/L Carbon Dioxide 24 (20-32) mmol/L Anion Gap 8 (7-15) mEq/L BUN 18 (7-30) mg/dL Creatinine 0.9 (0.5-1.5) mg/dL Estimated Creat Clear 78.63 Estimated GFR 90 ml/min Glucose 161 H (60-115) mg/dL Calcium 9.0 (8.4-10.6) mg/dL Magnesium 2.1 (1.5-2.6) mg/dL Total Bilirubin 0.6 (0.1-1.5) mg/dL Direct Bilirubin 0.0 (0.0-0.5) mg/dL AST 97 H (12-35) U/L ALT 58 H (4-50) U/L Alkaline Phosphatase 78 (40-150) U/L Troponin I < 0.01 L (0.01-0.04) ng/mL C-Reactive Protein < 0.5 L (0.5-1.0) mg/dL NT-Pro-B Natriuret Pep 118 pg/mL Total Protein 7.3 (6.0-8.3) g/dL Albumin 4.2 (3.3-5.0) g/dL TSH 2.350 (0.270-4.20) uIU/mL Urine Color (Yellow) Urine Appearance (Clear) Urine pH (5.0-8.5) Ur Specific [place] (1.000-1.030) Urine Protein (Negative) Urine Glucose (UA) (Negative) Urine Ketones (Negative) Urine Blood (Negative) Urine Nitrite (Negative) Urine Bilirubin (Negative) Urine Urobilinogen (0.2-1.0) Ur Leukocyte Esterase (Negative) Urine RBC (0-2) Urine WBC (0-5) Ur Squamous Epith Cells (None-Few) Urine Bacteria (None) Salicylates < 1.0 L (1.0-10) mg/dL Urine Opiates Screen Negative (Negative) Ur Oxycodone Screen Negative (Negative) Urine Methadone Screen Negative (Negative) Ur Propoxyphene Screen Negative (Negative) Acetaminophen < 10.0 L (10.0-30.0) ug/mL Ur Barbiturates Screen Negative (Negative) U Tricyclic Antidepress Negative (Negative) Ur Phencyclidine Scrn Negative (Negative) Ur Amphetamines Screen Negative (Negative) U Methamphetamines Scrn Negative (Negative) U Benzodiazepines Scrn Negative (Negative) Urine Cocaine Screen Negative (Negative) U Marijuana (THC) Screen Negative (Negative) Ur Drug Screen Comment See Note Ethyl Alcohol < 0.01 L (0.01-0.03) % SARS-CoV-2 (PCR) Negative SARS-CoV-2 (Negative) Lab Acknowledgement POC Troponin I 0.01 (0.01-0.04) ng/ml 07/19/23 07/19/23 Range/Units 02:30 04:10 WBC (4.50-11.00) K/uL RBC (4.30-5.90) m/uL Hgb (13.5-17.5) gm/dL Hct (37.0-53.0) % MCV (80-100) fL MCH (26-34) pg MCHC (32-36) gm/dL RDW Coeff of Andrei (11.5-15.5) % Plt Count (140-440) K/uL Neut % (Auto) (42.0-72.0) % Lymph % (Auto) (20-44) % [place] % (Auto) (0.0-11.0) % Eos % (Auto) (0.0-7.0) % Baso % (Auto) (0.0-3.0) % Neut # (Auto) (1.7-7.0) K/uL Lymph # (Auto) (0.90-2.90) K/uL [place] # (Auto) (0.00-0.90) K/UL Eos # (Auto) (0.00-0.50) K/uL Baso # (Auto) (0.00-0.30) K/uL Abs Immat Gran (auto) (0.00-0.30) K/uL Imm/Tot Granulo (auto) % Sodium (135-149) mmol/L Potassium (3.6-5.1) mmol/L Chloride (96-114) mmol/L Carbon Dioxide (20-32) mmol/L Anion Gap (7-15) mEq/L BUN (7-30) mg/dL Creatinine (0.5-1.5) mg/dL Estimated Creat Clear Estimated GFR ml/min Glucose (60-115) mg/dL Calcium (8.4-10.6) mg/dL Magnesium (1.5-2.6) mg/dL Total Bilirubin (0.1-1.5) mg/dL Direct Bilirubin (0.0-0.5) mg/dL AST (12-35) U/L ALT (4-50) U/L Alkaline Phosphatase (40-150) U/L Troponin I (0.01-0.04) ng/mL C-Reactive Protein (0.5-1.0) mg/dL NT-Pro-B Natriuret Pep pg/mL Total Protein (6.0-8.3) g/dL Albumin (3.3-5.0) g/dL TSH (0.270-4.20) uIU/mL Urine Color Yellow (Yellow) Urine Appearance Clear (Clear) Urine pH 6.0 (5.0-8.5) Ur Specific [place] 1.010 (1.000-1.030) Urine Protein Negative (Negative) Urine Glucose (UA) Negative (Negative) Urine Ketones Negative (Negative) Urine Blood Negative (Negative) Urine Nitrite Negative (Negative) Urine Bilirubin Negative (Negative) Urine Urobilinogen 0.2 (0.2-1.0) Ur Leukocyte Esterase Negative (Negative) Urine RBC 0-2 (0-2) Urine WBC 0-2 (0-5) Ur Squamous Epith Cells Few (None-Few) Urine Bacteria None (None) Salicylates (1.0-10) mg/dL Urine Opiates Screen (Negative) Ur Oxycodone Screen (Negative) Urine Methadone Screen (Negative) Ur Propoxyphene Screen (Negative) Acetaminophen (10.0-30.0) ug/mL Ur Barbiturates Screen (Negative) U Tricyclic Antidepress (Negative) Ur Phencyclidine Scrn (Negative) Ur Amphetamines Screen (Negative) U Methamphetamines Scrn (Negative) U Benzodiazepines Scrn (Negative) Urine Cocaine Screen (Negative) U Marijuana (THC) Screen (Negative) Ur Drug Screen Comment Ethyl Alcohol (0.01-0.03) % SARS-CoV-2 (PCR) (Negative) Lab Acknowledgement Test Added POC Troponin I (0.01-0.04) ng/ml <Mary Ann Olmos MD - Last Filed: 07/20/23 08:11> ECG Data Attestation: I personally reviewed and interpreted this ECG as follows: (Normal sinus rhythm no prior comparison. Prominent right atria. rate of 87 cava baseline irritability) <Kailash Loomis MD - Last Filed: 07/19/23 11:03> Discharge Plan Discharge Clinical Impression: Bipolar 1 disorder, Acute psychosis <Kailash Loomis MD - Last Filed: 07/19/23 11:03> Patient Disposition: Xfer [facility] <Kailash Loomis MD - Last Filed: 07/19/23 11:03> Prescriptions: No Action clonazepam 0.5 mg tablet 0.5 mg PO DAILY PRN simvastatin 40 mg tablet 40 mg PO DAILY hydroxyzine HCl 25 mg tablet 25 - 50 mg PO DAILY PRN propranolol 20 mg tablet 20 mg PO BID desipramine 10 mg tablet 10 - 20 mg PO DAILY <Kailash Loomis MD - Last Filed: 07/19/23 11:03> Stand Alone Forms: [facility] Info Instructions <Kailash Loomis MD - Last Filed: 07/19/23 11:03>
[2023-07-19] MEDS: 0.9 % SODIUM CHLORIDE 1000 ml 1,000 ML IV (01:21)
[2023-07-19 01:28] LABS: Basophils Absolute Auto 0.02 K/uL (0.00-0.30); Basophils Percent Auto 0.2 % (0.0-3.0); Eosinophils Absolute Auto 0.09 K/uL (0.00-0.50); Eosinophils Percent Auto 1.1 % (0.0-7.0); Hematocrit 41.1 % (37.0-53.0); Immature Granulocytes Abs Auto 0.02 K/uL (0.00-0.30); Immature Granulocytes Pct Auto 0.2 %; Lymphocytes Percent Auto 15.2 % (20-44); Mean Corpuscular HGB Conc 34 gm/dL (32-36); Mean Corpuscular Hemoglobin 31 pg (26-34); Mean Corpuscular Volume 92 fL (80-100); Monocytes Percent Auto 8.2 % (0.0-11.0); Neutrophils Percent Auto 75.1 % (42.0-72.0); Platelet Count* 233 K/uL (140-440); RDW Coefficient of Variation % 12.4 % (11.5-15.5); Red Blood Count 4.49 m/uL (4.30-5.90); White Blood Count* 8.54 K/uL (4.50-11.00)
[2023-07-19 01:32] LABS: Slide Review Reflex No
[2023-07-19 01:36] LABS: Troponin, Point-of-Care* 0.01 ng/ml (0.01-0.04)
[2023-07-19 01:43] LABS: Chloride* 107 mmol/L (96-114)
[2023-07-19 01:44] LABS: Potassium* 3.6 mmol/L (3.6-5.1); Sodium* 139 mmol/L (135-149)
[2023-07-19 01:46] LABS: Creatinine* 0.9 mg/dL (0.5-1.5); Est. Creatinine Clearance* 78.63; Estimated Glomerular Filt Rate 90 ml/min; Magnesium* 2.1 mg/dL (1.5-2.6)
[2023-07-19 01:47] LABS: Anion Gap 8 mEq/L (7-15); Blood Urea Nitrogen* 18 mg/dL (7-30); Carbon Dioxide* 24 mmol/L (20-32); Ethanol* < 0.01 % (0.01-0.03); Glucose* 161 mg/dL (60-115)
[2023-07-19 01:50] LABS: C Reactive Protein* < 0.5 mg/dL (0.5-1.0)
[2023-07-19 01:57] LABS: NT Pro B Type NatriureticPept* 118 pg/mL
[2023-07-19 01:59] LABS: Troponin I* < 0.01 ng/mL (0.01-0.04)
[2023-07-19 02:05] LABS: SARS PCR* Negative SARS-CoV-2 (Negative)
[2023-07-19 02:46] LABS: Amphetamine Screen Urine Negative (Negative); Barbiturate Screen Urine Negative (Negative); Benzodiazepines Screen Urine Negative (Negative); Cannabinoid Screen Urine Negative (Negative); Cocaine Screen Urine Negative (Negative); Methadone Screen Urine Negative (Negative); Methamphetamines Screen Urine Negative (Negative); Opiate Screen Urine Negative (Negative); Oxycodone Screen Urine Negative (Negative); Phencyclidine Screen Urine Negative (Negative); Tricyclic Antidepressant Urine Negative (Negative)
[2023-07-19 03:01] LABS: Appearance Urine Clear (Clear); Bilirubin Urine Negative (Negative); Blood Urine Negative (Negative); Color Urine Yellow (Yellow); Glucose Urine Negative (Negative); Ketones Urine Negative (Negative); Leukocyte Esterase Urine Negative (Negative); Nitrite Urine Negative (Negative); Protein Urine Negative (Negative); RBC Urine 0-2 (0-2); Squamous Epithelial Cell Urine Few (None-Few); Urobilinogen Urine 0.2 (0.2-1.0); WBC Urine 0-2 (0-5)
[2023-07-19 04:24] LABS: Acetaminophen* < 10.0 ug/mL (10.0-30.0); Alanine Aminotransferase* 58 U/L (4-50); Albumin* 4.2 g/dL (3.3-5.0); Alkaline Phosphatase* 78 U/L (40-150); Aspartate Amino Transferase* 97 U/L (12-35); Bilirubin Total* 0.6 mg/dL (0.1-1.5); Salicylate* < 1.0 mg/dL (1.0-10); Total Protein* 7.3 g/dL (6.0-8.3)
[2023-07-19] MEDS: LORazepam 1 MG TABLET 1.5 MG PO (04:45)
[2023-07-19 08:09] VITALS: BP 158/102; PULSE 87; RESP 20; O2SAT 97
--- NOTE | 2023-07-19 09:34 | ED.NURSE ---
Pt is appearing to be talking to someone that isn't here. Pt stepped out of the room, was having a conversation with facility security officer. Was able to be talked into going back in to his room.
[2023-07-19] MEDS: OLANZapine 5 MG TAB.RAPDIS 10 MG PO ×2 (10:00→20:20)
--- NOTE | 2023-07-19 11:11 | ED.NURSE ---
Pt is stepping into the [facility], is thinking that staff gave him medication through his IV that is making him feel different. Pt was brought up a lunch tray, is sitting in his room eating at the moment.
--- NOTE | 2023-07-19 12:23 | ED.NURSE ---
Pt is making statements about people stealing money from his son. Pt is worked up, but is calm and is staying in his room, while his son is in the room.
[2023-07-19] MEDS: LORazepam 1 MG TABLET PO (12:25)
[2023-07-19] MEDS: LORazepam 0.5 MG TABLET 2 MG PO (13:07)
--- NOTE | 2023-07-19 13:08 | ED.NURSE ---
Pt was unable to calm down due to being delusional and confused. Dr Araya was called on pt. Pt was able to walk back to room, with son and staff to help.
--- NOTE | 2023-07-19 14:07 | ED.NURSE ---
pt brother and nephew are in the room with pt. Pt is calm and cooperative at this time.
[2023-07-19 14:44] VITALS: BP 116/102; PULSE 87; RESP 20; TEMP 36.9; O2SAT 97
[2023-07-19] MEDS: diphenhydrAMINE 50 MG/ML inj IM (15:20)
[2023-07-19] MEDS: HALOPERIDOL 5 MG/ML INJ 10 MG IM (15:20)
[2023-07-19] MEDS: LORazepam 2 MG/ML inj IM (15:20)
--- NOTE | 2023-07-19 15:23 | ED.NURSE ---
Pt was given a copy of his rights for being on a 72 hour hold. Pt was unable to be read his rights due to being agitated
--- NOTE | 2023-07-19 15:27 | ED.NURSE ---
Dr Araya was called again on pt at 1456. Pt was stepping out of room into the hallway and was unable to redirect back to his room. Pt walked outside observed by staff, and around the parking lot. The pt was requesting police presence, PD called to [facility]. Pt redirected to room with staff and police. Pt has his brother, son, and nephew in the room with him. Pt was not restrained after the time of Dr Araya being called. Pt was given medications to calm down once back into his room. Pt is at this time calmly interacting with family, sitting on the bed in his room.
--- NOTE | 2023-07-19 15:41 | PC.SOCIAL ---
Addendum entered by TAMI Briceño 07/19/23 16:23: Phone call to Jackie at [facility] at [phone]. Confirmed fax of referral was received. Provided clarification on hold. Pt is own person and currently on a hold. Jackie will contact [facility] ED with any updates. Original Note: Social work called to assist with locating placement. Phone call to the following geriatric MH placements. 1. [facility]- phone call to admissions at [phone] to follow up on referral that was faxed. Need clarification from MD on appropriateness of facility. Provided update to nursing. MD will connect with facility. 2. [facility]- Phone call to admissions at [phone]. They are assessing pt for possible admission. 3. [facility] Phone call to admissions at [phone] and spoke to Jackie in nursing. Provided initial information. They will assess. Faxed referral to [phone]. Provided update to nursing. Social work will follow up as needed.
--- NOTE | 2023-07-19 15:50 | ED.NURSE ---
pt belongings such as wallet, phones, 2 pens an senior sales consultant obtained by security. Pt belongings put in med room.
--- NOTE | 2023-07-19 16:18 | ED.NURSE ---
Pt is resting in bed with family presence in room.
--- NOTE | 2023-07-19 16:53 | ED.NURSE ---
pt vitals deferred at this time due to pt resting, and not wanting to disturb rest.
--- NOTE | 2023-07-19 17:33 | PC.NURSE ---
Reflections in [facility] is still reviewing pt, they are going to need to talk to the provider in the AM about pt being on a hold, not refusing
--- NOTE | 2023-07-19 18:05 | ED.NURSE ---
Pt is sleeping/resting in bed, brother is in pt room.
--- NOTE | 2023-07-19 19:04 | ED.NURSE ---
Pt is resting in room, sleeping.
--- NOTE | 2023-07-19 19:27 | ED.NURSE ---
pt is still sleeping. retail loan originator assistant is sitting outside of room incase help is needed as a 1:1.
--- NOTE | 2023-07-19 19:50 | ED.NURSE ---
pt is waking up, is able to be redirected, is calm, and cooperative at this time.
[2023-07-19 20:32] VITALS: BP 145/83; PULSE 87; RESP 18; O2SAT 97
--- NOTE | 2023-07-19 20:38 | ED.NURSE ---
Pt report given off to oncoming RN
--- NOTE | 2023-07-19 22:43 | PC.NURSE ---
patient linen changed and paper scrubs provided. patient cooperative with staff with linen changed and clothing changed. OB NA at bedside, brother at bedside. patient visualized on monitor by security.
--- NOTE | 2023-07-20 00:44 | PC.NURSE ---
linen changed again, patient cooperative with staff to change linen and clothing
--- NOTE | 2023-07-20 01:09 | PC.NURSE ---
jacqueline asleep in room, visualized on monitor. rr even and unlabored
[2023-07-20] MEDS: LORazepam 1 MG TABLET 2 MG PO (02:37)
[2023-07-20 02:43] VITALS: BP 141/87; PULSE 83; RESP 18; TEMP 36.4; O2SAT 98
[2023-07-20] MEDS: OLANZapine 5 MG TAB.RAPDIS 10 MG PO (03:53)
--- NOTE | 2023-07-20 05:54 | PC.NURSE ---
[facility] bed provided for patient, patients brother remains at bedside. patient visualized on video monitor. at this time patient asleep, RR even and unlabored
[2023-07-20 08:00] VITALS: BP 141/83; PULSE 74; RESP 16; O2SAT 98
[2023-07-20] MEDS: OLANZapine 5 MG/ML inj IVP (08:19)
--- NOTE | 2023-07-20 08:22 | ED.NURSE ---
pt has been restless in bed since 744. brother at bedside. pt not opening eyes but trying to get out of bed and has depends pulled off. pt heavy assist to commode with 2, pt not following direction well and very unsteady. pt voided 350 cc. heavy assist back to bed. pt says eyes are glued shut when asks him to open them. pt did request coffee, continues to try to get out of bed. breakfast ordered. pt assisted with brushing teeth and washing face.
--- NOTE | 2023-07-20 09:14 | ED.NURSE ---
Requested records from the office of Dr. Kev Ha. According to Epic system, patient attempted to refill his Oxcarbazapine back in July of 2022 with Coleen Harper APRN in psychiatry and this was denied as patient was no longer a patient with them. Patients brother stated I have 2 words for you, dawn pay. Updated social work with this information.
--- NOTE | 2023-07-20 09:51 | ED.NURSE ---
Attempted to get more information from patient regarding who refills his prescriptions and who his PCP is. Dr. Kev Ha is an expressive art therapist with a surgery center who does HP prior to surgeries. The information that was sent was not anything that we were able to use at this time.
[2023-07-20] MEDS: LITHIUM CARBONATE 150 MG CAPSULE 300 MG PO (11:51)
--- NOTE | 2023-07-20 14:16 | ED.NURSE ---
pt more independent and steadier this afternoon. fed self lunch. able to transfer from chair to bed. sleeping now. son at bedside.
--- NOTE | 2023-07-20 14:56 | ED.NURSE ---
pt accepted at [facility]. admitting md dr. walker. report given to aldo Alvarez when pt leaves [phone].
--- NOTE | 2023-07-20 16:09 | ED.NURSE ---
pt belongings given to pt's brotherObinna
--- NOTE | 2023-07-20 16:39 | PC.SOCIAL ---
Social work: Met with pt's brothBenji and son at their request regarding discharge plan. Answered questions regarding in-pt mental health placement process and mental health facilities. Brother expressed interest in exploring transfer out of state to [facility] in the [facility] area where pt was recently hospitalized. Son shared that he feels pt should stay in [place] and be placed in a mental health hospital locally. After discussion, brother agrees with this plan. [place] worker called back to facilities already assessing pt and also called all in-pt mental health facilities in [place] and [place] who will consider admission for a 72 year old patient on a hold. Below are the facilities contacted with the listed results: 1. [facility] - no beds available today. 2. [facility] - no beds available today. 3. [facility]- no beds available today. 4. [facility] - no beds available today. 5. [facility] - no beds available today. 6. [facility]- no beds available today[facility] 7. [facility] - no beds available today. 8. [facility] - not appropriate for this facility. 9. [facility] - no beds available today. 10. [facility] - no beds available today. 12. [facility] -- no beds available today. 13. [facility] - declined due to hold as they only accept voluntary patients. 14. [facility] - left message requesting call back. [facility]. [facility]. Spoke with brother, who was pleased with this plan. Provided written information on facility and contact information to brother. Brother asked to take home pt's personal belongings. Brother provided pt's Drivers License and insurance card for scanning into medical system.
[2023-07-20 17:50] VITALS: BP 173/90; PULSE 81; RESP 14; TEMP 36.6; O2SAT 98
--- NOTE | 2023-07-20 17:53 | ED.NURSE ---
pt transferred to [facility] via [facility]. brother, Obinna, already took pt belongings home with him.
== END 2023-07-20 17:54 ==
PROVIDERS: Emergency Provider Family Medicine
DX: F31.9 Bipolar disorder, unspecified (principal); F23 Brief psychotic disorder
CPT/HCPCS: 36415; 70450; 80048; 80076; 80143; 80179; 80306; 81001; 82077; 83735; 83880; 84443; 84484; 85025; 86140; 87635; 93005; 94761; 96361; 96372; 96374; 96376; 99284; 99285; A9270; J1200; J1630; J2060; J7030; S0166

== ENCOUNTER 2023-07-20 17:40 | Outpatient (CLI) | payer SELFPAY | END 2023-07-20 17:41 | disposition home or self-care (01) | LOC: AMB 08-11 11:46 | PROVIDERS: Visit Provider Emergency Medicine Emergency Medical Services | DX: R41.82 Altered mental status, unspecified (principal) | CPT/HCPCS: A0425; A0428 ==